=== PATIENT | male | born 1960 | race Hispanic/Latino ===

== ENCOUNTER 2022-10-18 02:06 | Emergency (ER) | payer OTHER ==
[~2022-10-18] VITALS: Ht 162.6 cm; Wt 59.0 kg
[2022-10-18 07:37] VITALS: BP 121/73
== END 2022-10-18 07:38 | disposition home or self-care (01) ==
LOC: EDH 02:06
DX: F10.20 Alcohol dependence, uncomplicated (principal)
CPT/HCPCS: 36415